=== PATIENT | female | born 2000 | race Caucasian/White ===

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

== ENCOUNTER 2019-03-18 11:15 | Emergency (ER) | payer OTHER ==
[~2019-03-18] VITALS: Ht 154.9 cm; Wt 77.5 kg
[2019-03-18] MEDS ORDERED: PREN27TA3 (11:26)
--- NOTE | 2019-03-18 13:54 | REP ---
Obstetric sonography: History: Pelvic pain. Change in urination. 14 weeks by dates. Findings: Transabdominal scanning confirms the presence of a single living intrauterine gestation. heart rate is recorded at 163 beats per minute. motion is observed is observed. An anterior placenta is seen. No extrauterine abnormalities observed. No gross anomaly is seen. Biometry chart: BPD 2.2 cm 13 weeks 4 days head circumference 8.4 cm 13 weeks 5 days abdominal circumference 6.9 cm 13 weeks 3 days femur length 1.3 cm 13 weeks 6 days humeral length 1.6 cm 14 weeks 0 days HC/AC ratio normal 1.23 cephalic index normal 0.70 estimated weight 80 grams, 0 pounds 2 ounces, 24th percentile for 14 weeks 0 days. Impression: Viable single intrauterine gestation at 13 weeks 5 days by today's composite criteria. GONZÁLEZ by today's sonography September 18, 2019. No complication is seen. Electronically Signed by Roshan Vega MD 03/18/2019 01:46 P
[2019-03-18] MEDS ORDERED: KEFL500C17 PO (14:03)
[2019-03-18 14:07] VITALS: BP 114/66
== END 2019-03-18 14:11 | disposition home or self-care (01) ==
LOC: M ED 11:15
DX: O23.11 Infections of bladder in pregnancy, first trimester (principal); O99.331 Smoking (tobacco) complicating pregnancy, first trimester; F17.290 Nicotine dependence, other tobacco product, uncomplicated; Z3A.13 13 weeks gestation of pregnancy; Z88.0 Allergy status to penicillin; Z79.899 Other long term (current) drug therapy

== ENCOUNTER 2019-09-16 10:57 | Outpatient (CLI) | payer OTHER ==
[~2019-09-16] VITALS: Ht 154.9 cm; Wt 101.6 kg
[~2019-09-16 10:57] MED LIST: KEFL500C17 PO; PREN27TA3
[2019-09-16 11:27] VITALS: BP 117/76
--- NOTE | 2019-09-16 19:54 | HPE ---
DATE OF ADMISSION: 09/16/2019 18-year-old 1, para 0, last menstrual period (LMP) is unknown, estimated date of confinement (EDC) by early ultrasound is 7 weeks, 6 days, September 25, 2019. She is now at 39 weeks of gestation. She thinks she has been leaking since last night. Risk factors are a body mass index (BMI) of 35.0, and she is a vaper. Labs are O+, HIV negative, hepatitis negative, RPR negative, rubella immune. Varicella immune. Urine negative. Gonorrhea and chlamydia are negative. 1-hour glucose is 131, 28-week glucose is 134. GBS negative. On examination, no distress. Symphysis fundus height is 39. Four quadrant bowel sounds are noted. Vertex, category one strip. No contractions. Moderate variability. No decelerations. Accelerations were noted. Sterile speculum examination: Cervix is closed, some normal physiologic discharge. Nitrazine was negative. Ferning was negative. No yeast or bacterial vaginitis (BV) was noted. No pooling. The patient's temperature is 98.0 and the urine was 1.015, 6, and trace of leukocytes. In summary, we have a 39+ week with increasing leukorrhea. No evidence of ruptured membranes, category one strip, normal fluid, discharged. Has an appointment at [facility] tomorrow morning. All questions were answered. 40-minute discussion.
== END 2019-09-16 12:26 | disposition home or self-care (01) ==
LOC: M LDO 10:57
PROVIDERS: ATTEND Obstetrics & Gynecology
DX: O26.893 Other specified pregnancy related conditions, third trimester (principal); N89.8 Other specified noninflammatory disorders of vagina; Z3A.39 39 weeks gestation of pregnancy
CPT/HCPCS: 59025; G0378; G0463

== ENCOUNTER 2019-09-24 03:46 | Inpatient (IN) | payer OTHER ==
[~2019-09-24] VITALS: Ht 154.9 cm; Wt 103.0 kg
[2019-09-24] MEDS ORDERED: LR 1,000 ML IV SCH (04:26)
[2019-09-24] MEDS ORDERED: LACTATED RINGER'S 1000 ML IV ONE (04:30)
[2019-09-24] MEDS ORDERED: OXYTOCIN 30 UNITS IN 0.9% NaCl 500ML IV BAG (J2590) As Ordered ONE (04:39)
[2019-09-24 04:44] LABS: HEMATOCRIT 31.9 % (36.0-47.0); HEMOGLOBIN 10.2 g/dl (12.0-15.5); MEAN CORPUSCULAR HEMOGLOBIN 25.8 pg (27.0-33.0); MEAN CORPUSCULAR VOLUME 80.6 fl (80.0-96.0); PLATELET COUNT, AUTOMATED 296 10^3/uL (150-450); RED BLOOD COUNT 3.96 10^6/uL (4.00-5.40); WHITE BLOOD COUNT 18.4 10^3/uL (4.0-10.0)
[2019-09-24] MEDS ORDERED: DOCUSATE SODIUM 100MG CAPSULE PO PRN (07:00)
[2019-09-24] MEDS ORDERED: METHYLERGONOVINE MALEATE 0.2 MG TAB PO PRN (07:00)
[2019-09-24] MEDS ORDERED: IBUPROFEN 600MG TAB PO PRN (07:00)
[2019-09-24] MEDS ORDERED: ACETAMINOPHEN TAB 650MG DOSE (2X325MG) PO PRN (07:00)
[2019-09-24] MEDS ORDERED: MEASLES,MUMPS,RUBELLA VACCINE INJ (MMR-II) (90707) SC SCH (07:00)
[2019-09-24] MEDS ORDERED: DIBUCAINE 1% OINTMENT 30GM TOP PRN (07:00)
[2019-09-24] MEDS ORDERED: ANUSOL HC CREAM 30GM TOP PRN (07:00)
[2019-09-24] MEDS ORDERED: ACETAMINOPHEN 500 MG TAB PO PRN (07:00)
[2019-09-24] MEDS ORDERED: OXYTOCIN INJ 10 UNITS/ML VIAL (J2590) IV ONE (07:00)
[2019-09-24] MEDS ORDERED: OXYTOCIN DRIP 30 UNITS in IV 1 EA IV ONE (07:00)
[2019-09-24] MEDS ORDERED: MOM 30ML SUSPENSION UDC PO PRN (07:00)
[2019-09-24] MEDS ORDERED: RHOGAM 300 MCG (1500 IU) INJ (J2790) IM SCH (07:00)
[2019-09-24 07:05] LABS: CORD GAS ABE V -10.2; CORD GAS HCO3 V 16.5 MEQ/L; CORD GAS O2 SAT V 74.7 %; CORD GAS PCO2 V 39.2 mmHg; CORD GAS PH V 7.241 UNITS; CORD GAS PO2 V 37.4 mmHg; CORD GAS TCO2 V 17.7 MEQ/L
[2019-09-24 07:06] LABS: CORD GAS ABE A -8.9; CORD GAS HCO3 A 17.3 MEQ/L; CORD GAS O2 SAT A 66.8 %; CORD GAS PCO2 A 38.6 mmHg; CORD GAS PH A 7.27 UNITS; CORD GAS PO2 A 31.3 mmHg; CORD GAS SBC A 16.8 MEQ/L; CORD GAS TCO2 A 18.5 MEQ/L
[2019-09-24 09:10] VITALS: BP 133/77
[2019-09-24] MEDS: PRENATAL VITAMINS CHEWABLE TABLET PO SCH (09:15)
[2019-09-24] MEDS ORDERED: OXYTOCIN INJ 10 UNITS/ML VIAL (J2590) As Ordered ONE (09:43)
--- NOTE | 2019-09-24 15:44 | HPE ---
DATE OF ADMISSION: 09/24/2019 19-year-old, 1, para 0, last menstrual period (LMP) is unknown, estimated date of confinement (EDC) by early ultrasound 7 weeks 6 days is 09/25/2019. She is at 39 and 6, in active labor, questionable spontaneous rupture of membranes. Risk factors are obesity, body mass index (BMI) is 35.0 and she is a vaping tobacco patient. The patient labs are O+, HIV negative, hepatitis negative, RPR negative, rubella immune. Varicella immune. Urine is negative. Gonorrhea and chlamydia are negative. Early 1-hour glucose was 131, 28-week GTT was 134 and she is GBS negative. Blood pressure 134/63, respirations 20, pulse 81, temperature 97.6. On examination, does not appear distressed. Symphysis fundus height is 39, vertex presenting. Four quadrant bowel sounds are noted. She is actually artifical rupture of membranes (AROM). No fluid was seen and the patient has unknown recollection of when or whether she ruptured her of membranes or not. However, upon further reflection the patient says she thought they ruptured at 3 o'clock, 09/23/2019. The rest of the examination is unremarkable. She is normocephalic, atraumatic. Neck full range of motion. Pupils equal and reactive to light. Distal pulses are symmetric. No evidence of deep venous thrombosis (DVT), pulmonary embolism (PE) or superficial phlebitis. Chest is clear bilaterally at bases. No wheezes or rhonchi. No costovertebral angle (CVA) tenderness. Abdomen was soft. Appropriate symphysis fundus height. Four quadrant bowel sounds are noted. She has no rashes, lesions or pruritus. No arthralgia or myalgia. No complaint of joint pain. No complaint of cough, wheeze, shortness of breath or dyspnea on exertion. She has no bleeding. Neuro complete. She has no urgency or frequency. No nausea, vomiting, diarrhea or constipation. She has no heat or cold sensitivities. No diabetic issues. 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 Past medical, surgical, and family history are noncontributory. She vapes. No alcohol. Does not abuse drugs. Is . No domestic violence. deployed. Has good support systems. [id number] is present. In discussions that we have had previously and concurrently, we discussed consent for vaginal delivery, which is delivery through the vagina, with possible assistance of vacuum or forceps if needed for maternal or indications. These are devices that can assist for vaginal delivery when normal pushing efforts cannot achieve delivery on their own or when delivery is needed in emergency for baby's well-being. Medications may use to induce or augment labor in order achieve vaginal delivery. An episiotomy may be required to help the baby deliver vaginally. You may also require repair of any lacerations or tears the vagina, vulva that are caused by delivery. In some cases emergencies arise that require emergency section, which is delivery through an incision on the abdomen, that are done for maternal or indications and are usually used when it is safer for mom and baby than continuing on in labor. The provider will discuss this option with you. Other risk of vaginal delivery include not limited to bleeding, infection, injury to the vagina, pelvic structures, injury to baby, damage to the uterus, reaction to anesthesia, uterine rupture, risk of hysterectomy for life-threatening bleeding issues or even . Medications used to induce or augment labor may increase risk of , hysterectomy, hemorrhage, distress, increased risk of perineal and vaginal lacerations, risk of bowel or bladder incontinence, use of forceps or vacuum on baby may increase risk of scratches, hematomas the head or intracranial bleed. The patient expressed previously and ongoing understanding. 40-minute discussion. All questions were answered. Safe to proceed.
[2019-09-24 17:53] VITALS: BP 117/63
[2019-09-24] MEDS: IBUPROFEN 800 MG TAB PO PRN (20:22)
[2019-09-25 06:00] VITALS: BP 113/66
[2019-09-25 07:07] LABS: HEMATOCRIT 27.2 % (36.0-47.0); HEMOGLOBIN 8.5 g/dl (12.0-15.5); MEAN CORPUSCULAR HEMOGLOBIN 25.7 pg (27.0-33.0); MEAN CORPUSCULAR HGB CONC 31.3 g/dl (32.0-36.5); MEAN CORPUSCULAR VOLUME 82.2 fl (80.0-96.0); PLATELET COUNT, AUTOMATED 186 10^3/uL (150-450); RED BLOOD COUNT 3.31 10^6/uL (4.00-5.40); WHITE BLOOD COUNT 11.4 10^3/uL (4.0-10.0)
[2019-09-25] MEDS: PRENATAL VITAMINS CHEWABLE TABLET PO SCH (08:43)
[2019-09-25] MEDS: IBUPROFEN 800 MG TAB PO PRN (08:43)
[2019-09-25] MEDS ORDERED: IBUP80TA PO (12:10)
[2019-09-25] MEDS ORDERED: DIBU10OI TOP (12:10)
[2019-09-25] MEDS ORDERED: DOCU100C16 PO (12:10)
--- NOTE | 2019-09-26 15:04 | DN ---
DATE: 09/24/2019 This lady is a 1, para 0, admitted at 39 and 6 weeks of spontaneous labor. She had a rim at the time she was admitted. She said that her membranes were thought ruptured at 1500 hours the day before; however we did find when she was fully dilated a small bag artificial rupture of membranes (AROM) draining clear liquor. She had a spontaneous vaginal delivery without analgesia, a live- female infant, 3230 grams, 7 pounds 2 ounces, scores of 9 and 9 at one and five minutes, respectively. Baby had terminal meconium at delivery. She sustained a small first-degree tear, which was oversewn in the usual fashion with 2-0 Vicryl a [id number]. The placenta delivered spontaneously thereafter, three vessels in the cord, membranes and tissues intact. Uterus contracted well down on Pitocin. Examination of cervix. Anterior, posterior, lateral holm were complete. The uterus again was re-examined and found to be contracted, uterus 2 below. The patient and baby tolerating procedure well.
--- NOTE | 2019-09-29 21:03 | DSES ---
DATE OF ADMISSION: 09/24/2019 DATE OF DISCHARGE: 09/25/2019 This lady is a 19-year-old 1, now para 1, admitted in spontaneous labor at 39 at 6 weeks of gestation. Had AROM. She had a spontaneous vaginal delivery with no epidural or medication, a female infant, 7 pounds 2 ounces, 3230 grams, scores of 9 and 9 at one and five minutes, respectively. Arterial pH 7.27, base excess -8.19, venous pH 7.24, base excess -10.2. Her admitting hemoglobin was 10.2, hematocrit 31.9, and platelets 296. Discharge hemoglobin was 8.5, hematocrit 27.2, and platelets were 186. She was asymptomatic. She had a first-degree tear, which was repaired with no unusual events. Her blood pressure on discharge is 113/66, respirations are 20, pulse 89, temperature 97.4. We discussed phlebitis, cystitis, mastitis, metritis, cellulitis, diet, exercise pain management, and perineal, breast, and wound care. On examination, she is normocephalic, atraumatic. Neck: Full range of motion. Pupils equal and reactive to light. Distal pulses are symmetric. No evidence of deep vein thrombosis (DVT), pulmonary embolism (PE), or superficial phlebitis. Chest is clear bilaterally to bases. No wheezes or rhonchi. No costovertebral angle (CVA) tenderness. Abdomen soft. Uterus 2 below. Lochia is moderate. Four-quadrant bowel sounds are noted. Perineum is intact and healing. She has no urgency or frequency. No nausea, vomiting, diarrhea, or constipation. She is breast-feeding and doing well. She has a 6-week checkup with [facility]. supervisor in charge her medications dispensed at [facility]. All questions were answered. A 20-minute discussion. The patient was discharged improved.
== END 2019-09-25 18:55 | disposition home or self-care (01) | DRG 807 ==
LOC: M LDI 03:46 → M OBS 09:05
PROVIDERS: ADMIT Obstetrics & Gynecology; ATTEND Obstetrics & Gynecology
PROC: 10E0XZZ Delivery of Products of Conception, External Approach (ICD-10-PCS; principal; 2019-09-24)
PROC: 0HQ9XZZ Repair Perineum Skin, External Approach (ICD-10-PCS; 2019-09-24)
PROC: 10907ZC Drainage of Amniotic Fluid, Therapeutic from Products of Conception, Via Natural or Artificial Opening (ICD-10-PCS; 2019-09-24)
DX: O99.214 Obesity complicating childbirth (principal); Z37.0 Single live birth; E66.9 Obesity, unspecified; O99.334 Smoking (tobacco) complicating childbirth; F17.290 Nicotine dependence, other tobacco product, uncomplicated; Z3A.39 39 weeks gestation of pregnancy; O70.0 First degree perineal laceration during delivery

== ENCOUNTER 2020-10-28 03:13 | Inpatient (IN) | payer OTHER ==
[~2020-10-28] VITALS: Ht 154.9 cm; Wt 103.5 kg
[2020-10-28] VITALS (12 sets, daily range): BP systolic 108–145; BP diastolic 52–81
[~2020-10-28 03:13] MED LIST changes: +DIBU28OI2 TOP; +DOCU100C16 PO; +IBUP80TA PO
[2020-10-28] MEDS ORDERED: PRENTAB9 PO (04:46)
[2020-10-28] MEDS ORDERED: FERR325T3 PO (04:47)
[2020-10-28] MEDS ORDERED: VITA100T59 PO (04:47)
[2020-10-28 04:56] LABS: HEMATOCRIT 30.7 % (36.0-47.0); HEMOGLOBIN 9.2 g/dl (12.0-15.5); MEAN CORPUSCULAR VOLUME 80.2 fl (80.0-96.0); PLATELET COUNT, AUTOMATED 234 10^3/uL (150-450); RED BLOOD COUNT 3.83 10^6/uL (4.00-5.40); WHITE BLOOD COUNT 11.7 10^3/uL (4.0-10.0)
[2020-10-28] MEDS ORDERED: OXYTOCIN INJ 10 UNITS/ML VIAL (J2590) As Ordered ONE (05:11)
[2020-10-28] MEDS ORDERED: OXYTOCIN 30 UNITS IN 0.9% NaCl 500ML IV BAG (J2590) As Ordered ONE (05:12)
[2020-10-28] MEDS ORDERED: FENTANYL 2MCG/ML ROPIVACAINE 0.2% IN 0.9% NACL 100ML IVBAG As Ordered ONE (05:12)
[2020-10-28] MEDS ORDERED: METHYLERGONOVINE MALEATE 0.2 MG/ML VIAL (J2210) IM PRN (05:15)
[2020-10-28] MEDS ORDERED: OXYTOCIN DRIP 30 UNITS in IV 1 EA IV PRN (05:15)
[2020-10-28] MEDS ORDERED: OXYTOCIN INJ 10 UNITS/ML VIAL (J2590) IV PRN (05:15)
[2020-10-28] MEDS ORDERED: LR 1,000 ML IV ONE (05:30)
[2020-10-28] MEDS: LR 1,000 ML IV SCH ×2 (05:39→08:45)
--- NOTE | 2020-10-28 05:50 | HPEPDOC ---
Obstetrical History & Physical General Date of Admission Oct 28, 2020 at 04:05 Primary Care Physician: Dominic Foreman MD History of Present Illness ACTIVE LABOR AFTER MEMBRANE SWEEP AT Q5 MINUTES NOW 5 CM DILATED BULGING MEMBRANES VERTEX Chief Complaint: Contractions, term Information Provided By: Patient Age: 19 : 2 Term: 1 Pre-term: 0 Abortions: 0 Livin Care Care: Good Care Number of Visits: 8 Dating Final EDC: Oct 31, 2020 Final EDC for Daily Update: Oct 31, 2020 Final EDC by: LMP LMP: Jan 25, 2020 1st Trimester Date: Apr 21, 2020 Weeks + Days: 12.3 Estimated Date of Confinement: Oct 31, 2020 EGA at Admission: 39.4 Antepartum Course Diagnos(e)s ACTIVE LABOR AT TERM Height (inches): 61 Pre- weight (lbs.): 208 Admission Weight (lbs.): 226 Change in Weight (lbs.): 18 Past Medical History Past Obstetrical History : Past Obstetrical History: Multigravida Gestation: 39.6 Type of Delivery: Spontaneous Vaginal Del. 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 Past Medical History Surgical History: Denies/None Family History Significant Family History: Diabetes (GRAND MOTHER DIABETES,HYPERTENSION,CARDIAC), Hypertension (FATHER HYPERTENSION), Other (BROTHER PARKINSON'S, KIDNEY CANCER) Social History Social history TO [employer] NO VIOLENCE NON SMOKER NO VAPING NO ETOH NO RECREATIONAL DRUGS Marital Status: Family situation: Spouse/partner home Psychosocial History: No pertinent psych hx * Smoker: non-smoker Alcohol: Denies Drugs: denies Abuse Violence Screening Have you been hit/kicked/slapp: No Have you been sexually assault: No Imunizations Tdap status: current Influenza Status: current Allergies Coded Allergies: amoxicillin (Verified Allergy, Intermediate, rash, 03/18/19) Medications Scheduled Ascorbic Acid (Vitamin C) 100 Mg Tablet, 1 TAB PO DAILY No.137/Iron/Folic Acd ( Vitamin Tablet) 1 Each Tablet, 1 TAB PO DAILY Miscellaneous Medications Ferrous Sulfate (Ferrous Sulfate) 325 Mg Tablet.dr, 325 MG PO Physical Examination Physical Examination GENERAL: Alert and oriented times three. BREAST: . ABDOMEN: Gravid and non-tender to touch. FETUS: Is vertex (VTX) by sterile vaginal examination (SVE), fetus is vertex (VTX) by Niko. HEART RATE: Regular rate and rhythm. LUNGS: Clear to auscultation (CTA). EXTREMITIES: No edema. No clonus. Deep tendon reflexes (DTRs) + . Other physical findings NORMOCEPHALIC CHEST CLEAR TO BASES NO WHEEZES NO RHONCHI NO SOB, HEART SOUNDS NORMAL NO MURMUR, ABDOMEN SOFT BOWEL SOUNDS NORMAL SF HEIGHT 40 CM CERVIX 8 CM NOT WELL APPLIED BULGING MEMBRANES NO RASHES LESIONS OR PURITIES NO ARTHRALGIA NO MYALGIA, NO INCONTINENCE NO URGENCY FREQUENCY REFLEXES NORMAL NO EDEMA Vital Signs/I&O Vital Signs Date Time Temp Pulse Resp B/P (MAP) Pulse Ox O2 Delivery O2 Flow Rate FiO2 10/28/20 03:35 97.9 94 18 117/69 (85) Laboratory Data 24H LABS Laboratory Tests 2 10/28/20 04:14: Serology Scanned Report Hepatitis B Testing 10/28/20 04:33: Nucleated Red Blood Cells % (auto) 0.0 10/28/20 04:39: CBC/BMP Laboratory Tests 10/28/20 04:33 Pertinent Laboratoy Data Blood Type: O+ RBC Antibody Screen: Negative HIV: Negative Hepatitis B: Negative Rapid Plasma Reagin: Nonreactive Rubella: Immune Varicella: Immune Chlamydia/Gonorrhea: Negative Group B Streptococcus: Negative Cystic Fibrosis: Negative Anatomy Ultrasound Ultrasound Date: August 11, 2020 Placenta Location: Anterior Normal Anatomy: Yes Placenta Previa: No Estimated Weight (grams): 1314 Steroid Therapy Steroid Therapy: No Vaginal Examination Dilation: 8 cm Effacement: 80% Station: -2 Cervical Consistency: Soft Cervical Position: Anterior Presentation: Cephalic presentation Assessment Variability: Moderate Accelerations: Positive Decelerations: None Tocometer Contractions: Yes Frequency: every 1-3 min. Duration: less than 60 seconds Strength: palpated as moderate Assessment/Plan Assessment 19year-old (G 2 P 1 at 39.4 weeks by 12.3 week ultrasound. Presents to Labor and Delivery (L&D) . Plan Admit and orient. Supervisor [employer] and consent. Diet: NPO Group B Streptococcus (GBS) [negative]. Labs and intravenous (IV) per unit protocol. Counseled on Pitocin Lactated Ringers (LR): Bolus 1000 mL, then at 125 mL/hr. Anticipate [normal spontaneous delivery ()]. C-S as appropriate. Labor and Delivery Counseling REVIEWED VAGINAL DELIVERY RISK HEMORRHAGE INFECTION PERFORATION RISK OF LACERATIONS TEARS EPISIOTOMY REQUIRING REPAIR ALSO USE OF FORCEPS OR VACUUM RISK HEMATOMA SCRATCHES INTRACRANIAL BLEED WITH CS RISK HEMORRHAGE INFECTION PERFORATION REOPERATION RISK OF BLOOD TRANSFUSION OR HYSTERECTOMY FOR LIFE THREATENING BLEEDING RISK OF ADMISSION INFANT NICU EXPRESSED UNDERSTANDING SAFE TO PROCEED Dominic Foreman MD Oct 28, 2020 05:50
[2020-10-28] MEDS ORDERED: EPIDURAL/PCA KEYS XX PRN (06:50)
[2020-10-28] MEDS ORDERED: ONDANSETRON 4MG/2ML VIAL IV PRN (06:50)
[2020-10-28] MEDS ORDERED: EPIDURAL COMMENT XX SCH (06:50)
[2020-10-28] MEDS ORDERED: REFRIGERATOR IV KEYS XX PRN (06:50)
[2020-10-28] MEDS ORDERED: diphenhydrAMINE 50MG/ML VIAL (J1200) IV PRN (06:50)
[2020-10-28] MEDS ORDERED: ePHEDrine SULFATE 25 MG/5 ML(5MG/ML) SYRINGE IV PRN (06:50)
[2020-10-28] MEDS ORDERED: LACTATED RINGER'S 1000 ML IV PRN (06:50)
[2020-10-28] MEDS ORDERED: NALOXONE INJ 0.4MG/1ML VIAL (J2310 PER 1MG) IV PRN (06:50)
[2020-10-28] MEDS ORDERED: FENTANYL/ROPIVACAINE/NACL BAG 100 ML EPIDURAL SCH (06:50)
[2020-10-28] MEDS ORDERED: OXYTOCIN DRIP 30 UNITS in IV 1 EA IV SCH (08:00)
[2020-10-28] MEDS ORDERED: METHYLERGONOVINE MALEATE 0.2 MG TAB PO PRN (10:30)
[2020-10-28] MEDS ORDERED: IBUPROFEN 600MG TAB PO PRN (10:30)
[2020-10-28] MEDS ORDERED: RHOGAM 300 MCG (1500 IU) INJ (J2790) IM SCH (10:30)
[2020-10-28] MEDS ORDERED: IBUPROFEN 800 MG TAB PO PRN (10:30)
[2020-10-28] MEDS ORDERED: ACETAMINOPHEN TAB 650MG DOSE (2X325MG) PO PRN (10:30)
[2020-10-28] MEDS ORDERED: DIBUCAINE 1% OINTMENT 30GM TOP PRN (10:30)
[2020-10-28] MEDS ORDERED: MEASLES,MUMPS,RUBELLA VACCINE INJ (MMR-II) (90707) SC SCH (10:30)
[2020-10-28] MEDS ORDERED: DOCUSATE SODIUM 100MG CAPSULE PO PRN (10:30)
[2020-10-28] MEDS ORDERED: ACETAMINOPHEN 500 MG TAB PO PRN (10:30)
[2020-10-28 10:50] LABS: CORD GAS ABE V -9.6; CORD GAS HCO3 V 16.8 MEQ/L; CORD GAS O2 SAT V 92.9 %; CORD GAS PCO2 V 38.7 mmHg; CORD GAS PH V 7.256 UNITS; CORD GAS PO2 V 57.1 mmHg; CORD GAS SBC V 16.9 MEQ/L
[2020-10-28 10:54] LABS: CORD GAS ABE A -10.7; CORD GAS HCO3 A 17.6 MEQ/L; CORD GAS O2 SAT A 89.5 %; CORD GAS PCO2 A 47.6 mmHg; CORD GAS PH A 7.185 UNITS; CORD GAS PO2 A 52.5 mmHg
--- NOTE | 2020-10-28 12:07 | DNPDOC ---
[facility] Delivery Note Delivery Note DATE OF DELIVERY: 10/28/20 PREDELIVERY DIAGNOSIS: 39 5/7 weeks' gestation and labor. Obesity with BMI >40 POST DELIVERY DIAGNOSIS: Delivered. PROCEDURE: Spontaneous vaginal delivery. McRobert's and suprapubic pressure ONSITE CASE MANAGER: Dr. Molina ANESTHESIA: Epidural ESTIMATED BLOOD LOSS: 200 mL. FINDINGS: 8 pound 11 ounce female infant, Score 8/9, Cord pH 7.1 with base excess -10 DELIVERY SUMMARY: Patient is a 19-year-old 2 now para 1001 who was admitted to labor and delivery for spontaneous active labor overnight. Patient progressed to 9cm after AROM and then remained unchanged for several hours with intermittent late decelerations. Pitocin was added for augmentation. She then progressed to C/C/+1 and was encouraged to push. With good maternal pushing effort, head delivered direct OA and restituted to SATISH. Gentle downward traction was applied, shoulder did not easily deliver therefore McRobert's and suprapubic pressure applied, and anterior shoulder then delivered without difficulty and placed on mother's chest. Cord was doubly clamped and cut. Cord gases obtained as above. Placenta then delivered intact without difficulty. Perineum inspected with no lacerations noted. Mom and baby stable immediately . TROY MOLINA M.D. Oct 28, 2020 12:07
[2020-10-28] MEDS ORDERED: ENOXAPARIN 40MG/0.4ML SYRINGE (J1650 PER 10MG) SC SCH (15:00)
[2020-10-29] MEDS ORDERED: UNRESOLVED CLARIFICATION ENTRY XX SCH (00:01)
[2020-10-29 06:00] VITALS: BP 121/77
--- NOTE | 2020-10-29 07:11 | IPNPDOC ---
Progress Note Date of Service: Oct 29, 2020 Progress Note SUBJECT: 20-year-old 2now Para 2002 status post uncomplicated spontaneous vaginal delivery at 41 weeks' at approximately 1100 hours on 10/28/20 of a 8 pound 11 ounce female , Score 8/9, Cord pH 7.1 with base excess -10. She has been ambulating, voiding spontaneously without issue and tolerating regular diet. Bottle feeding without issue. Reports lochia is less than a period. Patient is ambulating well. OBJECTIVE: VITAL SIGNS: Within normal limits, afebrile. Alert and oriented times three. normal work of breathing. Heart rate: Regular rate Abdomen: Fundus firm at U-2. Soft, NTTP. ASSESSMENT: 20-year-old 2now Para 2002 status post uncomplicated spontaneous vaginal delivery at 41 weeks' at approximately 1100 hours on 10/28/20 of a 8 pound 11 ounce female infant, Score 8/9, Cord pH 7.1 with base excess -10. Doing well on day #1. Vitals within normal limits, afebrile, hemodynamically stable with no evidence of infection. PLAN: 1. Discharge to home tomorrow. 2. Tylenol and Motrin for pain. 3. Encourage ambulation. Lovenox ordered for VTE prophylaxis due to BMI >40 4. Desires Nexplanon at follow up visit 5. Routine PP visit in 6 weeks in clinic. VS, I&O, 24H, Fishbone Vital Signs/I&O Vital Signs Date Time Temp Pulse Resp B/P (MAP) Pulse Ox O2 Delivery O2 Flow Rate FiO2 10/29/20 06:00 98.6 105 20 121/77 (92) 97 Room Air I&O- Last 24 Hours up to 6 AM 10/29/20 06:00 Output Total 1200 ml Balance -1200 ml Laboratory Data 24H LABS Laboratory Tests 2 10/28/20 10:40: Cord Arterial Blood pH 7.185, Cord Arterial Blood PCO2 47.6, Cord Arterial Blood PO2 52.5, Cord Arterial Blood HCO3 17.6, Cord Arterial Blood Total CO2 19.0, Cord Arterial Blood Base Excess -10.7, Cord Arterial Base Excess (Standard 16.0, Cord Arterial Bld Oxygen Saturation 89.5, Cord Venous Blood pH 7.256, Cord Venous Blood PCO2 38.7, Cord Venous Blood PO2 57.1, Cord Venous Blood HCO3 16.8, Cord Venous Blood Total CO2 18.0, Cord Venous Base Excess (Actual) -9.6, Cord Venous Base Excess (Standard) 16.9, Cord Venous Blood Oxygen Saturation 92.9 TROY MOLINA M.D. Oct 29, 2020 07:10
[2020-10-29] MEDS ORDERED: ENOXAPARIN 40MG/0.4ML SYRINGE (J1650 PER 10MG) SC SCH (09:00)
[2020-10-29] MEDS ORDERED: PRENATAL VITAMINS CHEWABLE TABLET PO SCH (09:00)
--- NOTE | 2020-10-29 12:32 | DS.PDOC ---
Discharge Summary General Date of Admission Oct 28, 2020 at 04:05 Date of Discharge [id number] Discharge Summary Date of Admission: 28 Oct 2020 Admission Diagnosis: Labor at Full Term Delivery Date: 28 Oct 2020 Discharge Diagnosis: Normal spontaneous vaginal delivery, term up to 40 weeks gestation Campos gestation, live infant Shoulder Dystocia Procedures: External Monitoring Epidural AROM Vaginal Delivery Condition on Discharge: Stable Discharged to: Home Hospital Course: Mrs. Johnson is a 20 year old G 2 now P 2 who delivered a viable infant female at 39+5 weeks gestation via spontaneous vaginal delivery after arriving to unit in spontaneous labor. Delivery complicated by a shoulder dystocia that was relieved with Pauline and Suprapubic pressure. Mrs. Johnson has had an uncomplicated course. She has remained afebrile and normotensive with diminishing lochia throughout her stay. She is ambulating well, tolerating a regular diet, urinating without difficulty, reports normal bowel activities and has no breast or leg pain. She denies headache, vision changes, RUQ pain, or nausea/vomiting. She is stable and ready for discharge. Day of discharge physical exam documented in progress note. Infant feeding at discharge is formula. Planned control is Nexplanon. To follow up in the [facility] clinic in 6-8 weeks. Discharge management time Spent: <30 minutes I saw and evaluated the patient, and completed the documentation personally. -MAJ Michelle Mckeon CNM Vital Signs/I&Os Vital Signs Date Time Temp Pulse Resp B/P (MAP) Pulse Ox O2 Delivery O2 Flow Rate FiO2 10/29/20 06:00 98.6 105 20 121/77 (92) 97 Room Air I&O- Last 24 Hours up to 6 AM 10/29/20 06:00 Output Total 1200 ml Balance -1200 ml Discharge Medications Scheduled Ascorbic Acid (Vitamin C) 100 Mg Tablet, 1 TAB PO DAILY, (Reported) No.137/Iron/Folic Acd ( Vitamin Tablet) 1 Each Tablet, 1 TAB PO DAILY, (Reported) Miscellaneous Medications Ferrous Sulfate (Ferrous Sulfate) 325 Mg Tablet., 325 MG PO, (Reported) Allergies Coded Allergies: amoxicillin (Verified Allergy, Intermediate, rash, 03/18/19) MICHELLE MCKEON CNM Oct 29, 2020 12:29
== END 2020-10-29 13:20 | disposition home or self-care (01) | DRG 807 ==
LOC: M LDO 03:13 → M LDI 04:05 → M OBS 16:10
PROVIDERS: ADMIT Obstetrics & Gynecology; ATTEND Obstetrics & Gynecology
PROC: 10E0XZZ Delivery of Products of Conception, External Approach (ICD-10-PCS; principal; 2020-10-28)
PROC: 10907ZC Drainage of Amniotic Fluid, Therapeutic from Products of Conception, Via Natural or Artificial Opening (ICD-10-PCS; 2020-10-28)
DX: O66.0 Obstructed labor due to shoulder dystocia (principal); Z37.0 Single live birth; Z3A.39 39 weeks gestation of pregnancy